=== PATIENT | female | born 1980 | race Caucasian/White ===

== ENCOUNTER 2017-07-01 10:01 | Emergency (ER) | payer OTHER ==
[2017-07-01] MEDS ORDERED: OXYMETAZOLINE NASAL SPRAY NAS STA (10:23)
[2017-07-01] MEDS ORDERED: BENZOCAINE/MENTHOL LOZENGE MM STA (10:23)
--- NOTE | 2017-07-01 10:37 | ED Physician Documentation ---
History of Present Illness - Stated complaint Stated Complaint: H/A,BODY ACHES,SORE THROAT,EAR PX - Chief complaint Chief Complaint: General - Additonal information Additional information: hx from pt healthy 36 y/o f works at [employer] and her son has influneza to ED with fever chills myalgias sore throat nasal congestion and cough no NVD Review of Systems Constitutional: reports: Fever, Chills, Myalgias Nose: reports: Congestion Throat: reports: Sore throat Respiratory: reports: Cough GI: denies: Vomiting, Diarrhea : denies: Now EGA Immunocompromised: denies: Immunocompromised PD PAST MEDICAL HISTORY - Past Medical History Respiratory: Other GI: GERD 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: Ovarian cysts : None Psych: None Musculoskeletal: None - Past Surgical History Past Surgical History: Yes General: Cholecystectomy /HOP WEIGHER: section - Present Medications Home Medications: Ambulatory Orders Medication Instructions Recorded Confirmed Benzonatate [Tessalon] 100 mg PO TID PRN #20 capsule 07/01/17 Omeprazole [PriLOSEC] 1 tab PO DAILY 07/01/17 07/01/17 Oseltamivir [Tamiflu] 75 mg PO BID #9 capsule 07/01/17 Oxymetazoline HCl [Afrin] 2 spray NS BID PRN #1 bottle 07/01/17 Pseudoephedrine [Sudafed] 30 mg PO Q6H PRN #20 tablet 07/01/17 - Allergies Allergies/Adverse Reactions: Allergies Allergy/AdvReac Type Severity Reaction Status Date / Time clarithromycin [From Biaxin] Allergy Hives Verified 07/01/17 10:12 - Social History Does the pt smoke?: No Smoking Status: Never smoker Does the pt drink ETOH?: Yes Does the pt have substance abuse?: No - Immunizations Immunizations are current?: Yes - POLST Patient has POLST: No PD ED PE NORMAL - Vitals Vital signs reviewed: Yes - General General: Alert and oriented X 3 - HEENT HEENT: No: Ears normal (dull and congested jackelyn s eryhthema or purulence) - Cardiac Cardiac: RRR - Respiratory Respiratory: No respiratory distress, Clear bilaterally - Abdomen Abdomen: Soft, Non tender - Derm Derm: Normal color - Neuro Neuro: Alert and oriented X 3 Results - Vitals Vitals: Vital Signs - 24 hr 07/01/17 07/01/17 10:09 12:13 Temperature 36.7 C 36.5 C Heart Rate 80 75 Respiratory 16 16 Rate Blood Pressure 131/87 H 133/83 H O2 Saturation 98 98 Oxygen O2 Source Room air - Labs Labs: Laboratory Tests 07/01/17 07/01/17 10:20 10:35 Influenza A (Rapid) Negative Influenza B (Rapid) Negative Influenza Types A,B Ag - Group A Strep Rapid Negative PD MEDICAL DECISION MAKING - ED course ED course: flu swabs neg pt feels like she has flu - had it before - he son has it - last time she did not get tamiflu in time and this round she would like tamiflu so will rx after we discussed side effects risks and benefits and she still wanted tamiflu Departure - Departure Disposition: 01 Home, Self Care Clinical Impression: Influenza Condition: Good Instructions: ED Flu, Medication: Tamiflu (Oseltamivir) Follow-Up: ANA MARÍA GUTHRIE [Primary Care Provider] - Prescriptions: Benzonatate [Tessalon] 100 mg PO TID PRN #20 capsule PRN Reason: to ease cough Oseltamivir [Tamiflu] 75 mg PO BID #9 capsule Oxymetazoline HCl [Afrin] 2 spray NS BID PRN #1 bottle PRN Reason: nasal sinus ear congestion Pseudoephedrine [Sudafed] 30 mg PO Q6H PRN #20 tablet PRN Reason: congestion Comments: Both the strep and the flu swabs were negative But your symptoms are very suggestive of the flu and you were exposed to a documented case of flu So after we discussed the possible side effects of tamiflu, you wished to proceed I have also prescribed symptomatic medications
[2017-07-01 12:13] VITALS: BP 133/83
[2017-07-01] MEDS ORDERED: OSELTAMIVIR 75 MG CAPSULE PO STA (12:41)
== END 2017-07-01 12:52 | disposition home or self-care (01) ==
LOC: ED 10:01
DX: J11.1 Influenza due to unidentified influenza virus with other respiratory manifestations (principal); K21.9 Gastro-esophageal reflux disease without esophagitis
CPT/HCPCS: 87070; 87275; 87276; 87430; 99283; A9270

== ENCOUNTER 2017-12-10 10:13 | Emergency (ER) | payer OTHER ==
[2017-12-10] MEDS ORDERED: DEXAMETHASONE 10 MG/ML VIAL PO STA (11:29)
--- NOTE | 2017-12-10 11:32 | ED Physician Documentation ---
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 She has had some issue with sciatica previously and this seems somewhat different to her. She does get swelling in her extremities when she is standing for an extended period time. Review of Systems Constitutional: denies: Fever Eyes: denies: Decreased vision Ears: denies: Ear pain Nose: denies: Congestion Throat: denies: Sore throat Cardiac: denies: Chest pain / pressure, Palpitations Respiratory: denies: Dyspnea, Cough GI: denies: Abdominal Pain, Nausea, Vomiting : denies: Dysuria, Frequency Skin: denies: Rash Musculoskeletal: reports: Back pain, Extremity pain. 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 : None Psych: None Musculoskeletal: None - Past Surgical History Past Surgical History: Yes General: Cholecystectomy /JEWEL BEARING FACER: section - Present Medications Home Medications: Ambulatory Orders Medication Instructions Recorded Confirmed Cyclobenzaprine [Flexeril] 10 mg PO TID PRN #20 tablet 12/10/17 HYDROcod/ACETAM 5/325 [[place] 5/325] 1 - 2 ea PO Q6H PRN #15 tablet 12/10/17 - Allergies Allergies/Adverse Reactions: Allergies Allergy/AdvReac Type Severity Reaction Status Date / Time clarithromycin [From Biaxin] Allergy Hives Verified 12/10/17 10:26 - Social History Does the pt smoke?: No Smoking Status: Never smoker Does the pt drink ETOH?: Yes Does the pt have substance abuse?: No - Immunizations Immunizations are current?: Yes - POLST Patient has POLST: No PD ED PE NORMAL - Vitals Vital signs reviewed: Yes (hypotensive ) - General General: Alert and oriented X 3, No acute distress, Well developed/nourished - HEENT HEENT: Atraumatic, PERRL, EOMI - Neck Neck: Supple, no meningeal sign, No bony TTP - Cardiac Cardiac: RRR, No murmur - Respiratory Respiratory: No respiratory distress, Clear bilaterally - Abdomen Abdomen: Soft, Non tender - Back Back: No CVA TTP, No spinal TTP, Other (There is tenderness to the paraspinous muslces of the lower lumbar spine. ) - Derm Derm: Normal color, Warm and dry, No rash - Extremities Extremities: No deformity, Other (trace edema bilaterally worse on the right and pain to palp over the posterior calf and thigh. ) - Neuro Neuro: Alert and oriented X 3, utility bill collector 2-12 intact, No motor deficit, No sensory deficit, Normal speech Eye Opening: Spontaneous Motor: Obeys Commands Verbal: Oriented GCS Score: 15 - Psych Psych: Normal mood, Normal affect Results - Vitals Vitals: Vital Signs - 24 hr 12/10/17 12/10/17 10:22 11:32 Temperature 36 C L Heart Rate 96 79 Respiratory 18 14 Rate Blood Pressure 99/56 L 136/79 H O2 Saturation 96 98 Oxygen O2 Source Room air - Rads (name of study) duplex veins right Radiology: Prelim report reviewed (Impression: No evidence for deep venous thrombosis.), EMP read indepedently, See rad report Procedures - IVC sono (time) 1115 Bedside IVC sono: IVC measures (cm) (1.71), Euvolemia PD MEDICAL DECISION MAKING - ED course Complexity details: reviewed old records, reviewed results, re-evaluated patient, considered differential, d/w patient, d/w family ED course: 37-year-old female with pain radiating down her right leg with swelling of her ankles does not have deep vein thrombosis. She does have dependent edema and she has been on her feet a lot. She has sciatica and she is treated here in the emergency department with dexamethasone 10 mg orally. Duplex exam of the veins is obtained demonstrating no evidence of DVT. - Sepsis Event Vital Signs: Vital Signs - 24 hr 12/10/17 12/10/17 10:22 11:32 Temperature 36 C L Heart Rate 96 79 Respiratory 18 14 Rate Blood Pressure 99/56 L 136/79 H O2 Saturation 96 98 Oxygen O2 Source Room air Departure - Departure Disposition: 01 Home, Self Care Clinical Impression: Sciatica Qualifiers: Laterality: right Qualified Code(s): M54.31 - Sciatica, right side Condition: Stable Instructions: ED Sciatica Follow-Up: ANA MARÍA GUTHRIE [Primary Care Provider] - Prescriptions: Cyclobenzaprine [Flexeril] 10 mg PO TID PRN #20 tablet PRN Reason: Spasms HYDROcod/ACETAM 5/325 [[place] 5/325] 1 - 2 ea PO Q6H PRN #15 tablet PRN Reason: Pain Forms: Activity restrictions
--- NOTE | 2017-12-10 13:50 | Ultrasound Report ---
Reason: swelling and pain up the leg Procedure Date: 12/10/2017 Accession Number: [id number] / [id number] Procedure: US - Duplex Ext Veins Right CPT Code: FULL RESULT: EXAM: RIGHT LOWER EXTREMITY VENOUS ULTRASOUND EXAM DATE: 12/10/2017 01:36 PM. CLINICAL HISTORY: Swelling and pain up the leg. COMPARISON: None. TECHNIQUE: Real-time sonographic vascular imaging was performed by the bus mechanic through the lower extremity utilizing both color-flow and Doppler spectral analysis. Multiple client relations representative static images were saved for review. FINDINGS: Common Femoral Vein (CFV): Normal. CFV-GSV Junction: Normal. Profunda Femoral Vein (PFV): Normal. Femoral Vein (FV) Prox: Normal. Femoral Vein (FV) Mid: Normal. Femoral Vein (FV) Dist: Normal. Popliteal Vein: Normal. Posterior Tibial Veins: Normal. Peroneal Veins: Normal. Other: None. IMPRESSION: No evidence for deep venous thrombosis. RADIA
[2017-12-10 14:23] VITALS: BP 120/74
== END 2017-12-10 14:23 | disposition home or self-care (01) ==
LOC: ED 10:13
DX: M54.31 Sciatica, right side (principal)
CPT/HCPCS: 99283

== ENCOUNTER 2018-06-03 02:37 | Emergency (ER) | payer OTHER ==
[2018-06-03] MEDS ORDERED: ACETAMINOPHEN 500 MG TABLET PO STA (03:17)
[2018-06-03] MEDS ORDERED: NAPROXEN 250 MG TABLET PO STA (03:17)
--- NOTE | 2018-06-03 03:20 | ED Physician Documentation ---
History of Present Illness - Stated complaint Stated Complaint: BODY ACHES - Chief complaint Chief Complaint: General - Additonal information Additional information: 37-year-old female presents the emergency department for evaluation of body aches, chills, feeling fevers, sore throat and cough for the past several days. The patient gets some improvement with Tylenol Motrin. No reports of wheezing, chest pain, abdominal pain, vomiting or diarrhea. Symptoms are described as moderate. No other associated symptoms Review of Systems Constitutional: reports: Fever, Chills, Myalgias, Fatigue Eyes: denies: Discharge Ears: denies: Ear pain Nose: reports: Congestion Throat: reports: Sore throat Cardiac: denies: Chest pain / pressure Respiratory: reports: Cough. 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 : None Psych: None Musculoskeletal: None - Past Surgical History Past Surgical History: Yes General: Cholecystectomy /RV REPAIR TECHNICIAN: section - Present Medications Home Medications: Ambulatory Orders Medication Instructions Recorded Confirmed Cyclobenzaprine [Flexeril] 10 mg PO TID PRN #20 tablet 12/10/17 HYDROcod/ACETAM 5/325 [[place] 5/325] 1 - 2 ea PO Q6H PRN #15 tablet 12/10/17 - Allergies Allergies/Adverse Reactions: Allergies Allergy/AdvReac Type Severity Reaction Status Date / Time clarithromycin [From Biaxin] Allergy Hives Verified 12/10/17 10:26 - Social History Does the pt smoke?: No Smoking Status: Never smoker Does the pt drink ETOH?: Yes Does the pt have substance abuse?: No - Immunizations Immunizations are current?: Yes - POLST Patient has POLST: No PD ED PE NORMAL - General General: Alert and oriented X 3, No acute distress - HEENT HEENT: Atraumatic, PERRL, EOMI, Ears normal, Moist mucous membranes, Pharynx benign - Neck Neck: Supple, no meningeal sign - Cardiac Cardiac: RRR, Strong equal pulses - Respiratory Respiratory: No respiratory distress, Clear bilaterally - Derm Derm: Normal color - Extremities Extremities: No deformity, Normal ROM s pain, No edema - Neuro Neuro: Alert and oriented X 3, Normal speech - Psych Psych: Normal affect Results - Vitals Vitals: Vital Signs - 24 hr 06/03/18 06/03/18 02:39 03:24 Temperature 36.8 C 36.9 C Heart Rate 96 90 Respiratory 18 14 Rate Blood Pressure 136/94 H 138/100 H O2 Saturation 96 97 Oxygen O2 Source Room air PD MEDICAL DECISION MAKING - ED course ED course: Well-appearing, nontoxic and well-hydrated patient whose symptoms appear to be other viral etiology. There is no clinical evidence to suggest a superimposed b acterial infection and presently the patient appears appropriate for discharge and ongoing outpatient management. I discussed warning signs and recommended returning to the emergency department for any worsening or any concerns. Departure - Departure Disposition: 01 Home, Self Care Clinical Impression: Influenza-like illness Condition: Good Instructions: ED Flu Follow-Up: ANA MARÍA GUTHRIE [Primary Care Provider] - Within 1 week Comments: Please return to the emergency department for worsening symptoms or any concerns Forms: Activity restrictions
[2018-06-03 03:25] VITALS: BP 138/100
== END 2018-06-03 03:30 | disposition home or self-care (01) ==
LOC: ED 02:37
DX: R05 Cough (principal); R53.83 Other fatigue; R50.9 Fever, unspecified; M79.10 Myalgia, unspecified site; J02.9 Acute pharyngitis, unspecified
CPT/HCPCS: 99282; 99283; A9270

== ENCOUNTER 2018-09-22 19:23 | Emergency (ER) | payer OTHER ==
[2018-09-22] MEDS ORDERED: HYDROcod/ACETAM 5/325 MG TABLET PO STA (19:52)
[2018-09-22] MEDS ORDERED: IBUPROFEN 800 MG TABLET PO STA (19:52)
--- NOTE | 2018-09-22 19:54 | ED Physician Documentation ---
PD HPI LOWER EXT INJURY - Stated complaint Stated Complaint: LT LEG PX - Chief complaint Chief Complaint: Trauma Ext - History obtained from History obtained from: Patient - History of Present Illness PD HPI LOW EXT INJURY LOCATION: Other (She had a trip and fall at work, for she caught her right great toe on something and then went forward onto her knee and has left knee and left hip pain. Also increasing chronic back pain. 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 : None Psych: None Musculoskeletal: None - Past Surgical History Past Surgical History: Yes General: Cholecystectomy /TRUCK REPAIR SUPERVISOR: section - Present Medications Home Medications: Ambulatory Orders Medication Instructions Recorded Confirmed Cyclobenzaprine [Flexeril] 10 mg PO TID PRN #20 tablet 12/10/17 RX: HYDROcod/ACETAM 5/325 [[place] 1 - 2 ea PO Q6H PRN #15 tablet 12/10/17 5/325] Hydrocodone/Acetaminophen 1 - 2 each PO Q6H PRN #7 tablet 09/22/18 [Hydrocodon-Acetaminophen 5-325] Ibuprofen [Motrin] 800 mg PO Q8H PRN #20 tablet 09/22/18 - Allergies Allergies/Adverse Reactions: Allergies Allergy/AdvReac Type Severity Reaction Status Date / Time clarithromycin [From Biaxin] Allergy Hives Verified 12/10/17 10:26 - Social History Does the pt smoke?: No Smoking Status: Never smoker Does the pt drink ETOH?: Yes Does the pt have substance abuse?: No - Immunizations Immunizations are current?: No Immunizations: TDAP >10years/unknown - POLST Patient has POLST: No PD ED PE NORMAL - Vitals Vital signs reviewed: Yes - General General: Alert and oriented X 3, No acute distress - Neck Neck: Supple, no meningeal sign, No bony TTP - Back Back: No spinal TTP - Extremities Extremities: Other (Mild TTP R prox great toe, TTP Lprox fbiula and anterior knee, no deformity and no ligamentous laxity. No TTP L hip but pain with external rotation.) - Neuro Neuro: Alert and oriented X 3, Normal speech Results - Vitals Vitals: Vital Signs - 24 hr 09/22/18 09/22/18 19:28 20:48 Temperature 36.5 C 36.7 C Heart Rate 90 92 Respiratory 16 18 Rate Blood Pressure 139/82 H 125/72 O2 Saturation 99 98 Oxygen O2 Source Room air - Rads (name of study) XRs L foot, L hip, R 1st toe Radiology: EMP read contemporaneously (normal) Departure - Departure Disposition: 01 Home, Self Care Clinical Impression: Sprain of toe, great, right, Contusion of knee, left, Strain of left hip Condition: Good Record reviewed to determine appropriate education?: Yes Health Concerns: Fall with injuries of the right big toe and left leg Plan of Treatment: Xrays negative. Relative rest with pain medications Care Goals: improvement in pain and function Assessment: as above Instructions: ED Sprain Knee Prescriptions: Hydrocodone/Acetaminophen [Hydrocodon-Acetaminophen 5-325] 1 - 2 each PO Q6H PRN #7 tablet PRN Reason: pain Ibuprofen [Motrin] 800 mg PO Q8H PRN #20 tablet PRN Reason: PAIN &/OR FEVER Comments: Recheck with your doctor in a week if not better, return for new or worsening symptoms. Discharge Date/Time: 09/22/18 20:49
[2018-09-22] MEDS ORDERED: TETANUS/DIPHTHERIA/PERTUSSIS 0.5 ML SYRINGE IM ONE (19:55)
[2018-09-22 20:49] VITALS: BP 125/72
--- NOTE | 2018-09-22 21:16 | XRAY Report ---
Reason: fall, R big toe, L Knee, L hip pain Procedure Date: 09/22/2018 Accession Number: [id number] / [id number] Procedure: XR - Hip w/Pelvis 2-3V LT CPT Code: FULL RESULT: EXAM: LEFT HIP RADIOGRAPHY EXAM DATE: 09/22/2018 08:30 PM. CLINICAL HISTORY: Fall, R big toe, L Knee, L hip pain. COMPARISON: None. TECHNIQUE: 2 views. FINDINGS: Bones: Normal. No fractures or bone lesion. Joints: Normal. No dislocation. The hip joint space is preserved. Soft Tissues: Normal. No soft tissue swelling. IMPRESSION: Negative hip radiography. RADIA
--- NOTE | 2018-09-22 21:23 | XRAY Report ---
Reason: fall, R big toe, L Knee, L hip pain Procedure Date: 09/22/2018 Accession Number: [id number] / [id number] Procedure: XR - Knee 4 View LT CPT Code: FULL RESULT: EXAM: LEFT KNEE RADIOGRAPHY EXAM DATE: 09/22/2018 08:32 PM. CLINICAL HISTORY: Fall, R big toe, L Knee, L hip pain. COMPARISON: None. TECHNIQUE: 4 views. FINDINGS: Bones: Normal. No fractures or bone lesions. Joints: Normal. No effusion. No subluxations. Soft Tissues: Normal. No soft tissue swelling. IMPRESSION: Negative knee radiography. RADIA
--- NOTE | 2018-09-22 21:25 | XRAY Report ---
Reason: fall, R big toe, L Knee, L hip pain Procedure Date: 09/22/2018 Accession Number: [id number] / [id number] Procedure: XR - Toe(s) RT CPT Code: FULL RESULT: EXAM: RIGHT TOE RADIOGRAPHY EXAM DATE: 09/22/2018 08:33 PM. CLINICAL HISTORY: Fall, R big toe, L Knee, L hip pain. COMPARISON: None. TECHNIQUE: 3 views. FINDINGS: Bones: No fracture or focal bony lesion. Joints: No evidence of dislocation. Soft Tissues: No unexpected soft tissue findings. IMPRESSION: No evidence of fracture or dislocation. RADIA
== END 2018-09-22 20:49 | disposition home or self-care (01) ==
LOC: ED 19:23
DX: S76.012A Strain of muscle, fascia and tendon of left hip, initial encounter (principal); S93.501A Unspecified sprain of right great toe, initial encounter; S80.02XA Contusion of left knee, initial encounter; W01.0XXA Fall on same level from slipping, tripping and stumbling without subsequent striking against object, initial encounter; Y93.01 Activity, walking, marching and hiking; Y99.0 Civilian activity done for income or pay; Z23 Encounter for immunization
CPT/HCPCS: 73502; 73564; 73660; 90471; 90715; 99283; A9270

== ENCOUNTER 2019-01-06 07:31 | Emergency (ER) | payer OTHER ==
[2019-01-06 07:48] VITALS: BP 139/85
--- NOTE | 2019-01-06 08:12 | ED Physician Documentation ---
PD HPI SKIN - Stated complaint Stated Complaint: POST OP AB RASH - Chief complaint Chief Complaint: Wound - History obtained from History obtained from: Patient, Family - History of Present Illness Timing - duration: Days (3) Timing - details: Gradual onset Severity Comments: moderate irritation under her pannus and breasts Location: Other (breasts and pannus folds) Quality / character: Itchy, Other (red, tender) Improved by: Other (nothing) Worsened by (comment): COMMENT (nothing) Associated symptoms: No: Fever, Dyspnea, Abd pain, N/V/D, Urinary sx Contributing factors: Other (patient is 5 days s/p Hysterectomy performed laparoscopically at [facility]), Unknown Similar symptoms before: Has not had sx before Recently seen: Not recently seen - Treatment prior to arrival Treatment prior to arrival: aquaphor cream applied to pannus and breast folds - Additional information Additional information: States this started a few days after her surgery. It does not involve her surgical incisions or wounds. Review of Systems Ten Systems: 10 systems reviewed and negative Constitutional: denies: Fever Cardiac: reports: Reviewed and negative Respiratory: reports: Reviewed and negative GI: reports: Abdominal Pain (consistent with postop pain but not severe, controlled with analgesics at home). denies: Nausea, Vomiting Skin: reports: Rash Musculoskeletal: reports: Reviewed and negative Neurologic: reports: Reviewed and negative Immunocompromised: reports: Reviewed and negative. 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 : None Psych: None Musculoskeletal: None - Past Surgical History Past Surgical History: Yes General: Cholecystectomy /CONE MARKER: section, Hysterectomy - Present Medications Home Medications: Ambulatory Orders Medication Instructions Recorded Confirmed Cyclobenzaprine [Flexeril] 10 mg PO TID PRN #20 tablet 12/10/17 HYDROcod/ACETAM 5/325 [[place] 5/325] 1 - 2 ea PO Q6H PRN #15 tablet 12/10/17 Hydrocodone/Acetaminophen 1 - 2 each PO Q6H PRN #7 tablet 09/22/18 [Hydrocodon-Acetaminophen 5-325] Ibuprofen [Motrin] 800 mg PO Q8H PRN #20 tablet 09/22/18 Cephalexin [Keflex] 500 mg PO Q6H #28 capsule 01/06/19 Clotrimazole 1 applic TP BID #60 g 10/12/19 - Allergies Allergies/Adverse Reactions: Allergies Allergy/AdvReac Type Severity Reaction Status Date / Time clarithromycin [From Biaxin] Allergy Hives Verified 01/06/19 07:48 - Social History Does the pt smoke?: No Smoking Status: Never smoker Does the pt drink ETOH?: Yes Does the pt have substance abuse?: No - Immunizations Immunizations are current?: No Immunizations: TDAP >10years/unknown - POLST Patient has POLST: No PD ED PE NORMAL - Vitals Vital signs reviewed: Yes - General General: Alert and oriented X 3, No acute distress, Well developed/nourished - HEENT HEENT: Atraumatic, Pharynx benign - Neck Neck: Supple, no meningeal sign - Cardiac Cardiac: RRR - Respiratory Respiratory: No respiratory distress - Abdomen Abdomen: Soft, Non tender, Non distended, Other (obese abdomen ) - Female Female : Deferred - Rectal Rectal: Deferred - Extremities Extremities: No edema - Neuro Neuro: Alert and oriented X 3 Eye Opening: Spontaneous Motor: Obeys Commands Verbal: Oriented GCS Score: 15 - Psych Psych: Normal mood, Normal affect PD ED PE EXPANDED - Abdomen Abdomen: Surgical scars (laparoscopy scars in the abdomen are well healing and normal, clean dry and intact). No: Rebound, Guarding - Derm Derm: Rash (erythematous rash under her pannus and breasts bilaterally with some satellite lesions, skin is warm to touch, moist due to aquaphor pt has applied prior to arrival ) Results - Vitals Vitals: Vital Signs - 24 hr 01/06/19 07:42 Temperature 36.5 C Heart Rate 85 Respiratory 16 Rate Blood Pressure 139/85 H O2 Saturation 100 Oxygen O2 Source Room air PD MEDICAL DECISION MAKING - ED course Complexity details: considered differential, d/w patient, d/w family ED course: ddx- cellulitis, erysipelas, candidal intertrigo 38 y/o F well appearing with rash in her pannus fold and breast folds c/w candidal intertrigo. Will initiate home care regimen and clotrimazole. It is warm to the touch and mildly tender thus I did also prescribe the pt keflex in case of worsening but discussed holding off on using it unless no improvement or worsening despite the clotrimazole. Discussed return precautions in case of severe pain, spreading rash or fever. Departure - Departure Disposition: 01 Home, Self Care Clinical Impression: Candidal intertrigo Condition: Stable Record reviewed to determine appropriate education?: Yes Instructions: ED Candidiasis Cutaneous Follow-Up: ANA MARÍA GUTHRIE [Primary Care Provider] - Within 1 week (to recheck your rash if it persists) Prescriptions: Cephalexin [Keflex] 500 mg PO Q6H #28 capsule Clotrimazole 1 applic TP BID #60 g Comments: You likely have a candidal yeast infection. First try the prescribed clotrimazole cream but if worsening fill the prescription for keflex. If any fever or severe pain return to the ED for reevaluation. Otherwise follow up with your regular doctor to recheck the area in a week. The clotrimazole can take up to 4 weeks to clear this rash. Practices aimed at minimizing moisture and friction in the involved area and reducing susceptibility to intertrigo are the mainstays of treatment. Typical beneficial practices include: Daily cleansing of intertriginous skin with a mild cleanser followed by drying of affected area with a hair rooting machine operator on a cool setting Aeration of affected area when feasible Daily application of drying powders Use of absorbent material or clothing, such as cotton or [place] wool, to separate skin in folds Discharge Date/Time: 01/06/19 08:24
== END 2019-01-06 08:24 | disposition home or self-care (01) ==
LOC: ED 07:31
DX: B37.2 Candidiasis of skin and nail (principal); Z90.49 Acquired absence of other specified parts of digestive tract; Z90.710 Acquired absence of both cervix and uterus; Z98.890 Other specified postprocedural states
CPT/HCPCS: 99282; 99284

== ENCOUNTER 2019-03-13 12:40 | Emergency (ER) | payer OTHER ==
[2019-03-13 12:54] VITALS: BP 125/110
--- NOTE | 2019-03-13 13:36 | ED Physician Documentation ---
History of Present Illness - Stated complaint Stated Complaint: COUGH - Chief complaint Chief Complaint: Heent - History obtained from History obtained from: Patient - History of Present Illness Timing: How many days ago (a few days) Pain level max: 0 Pain level now: 0 Improved by: rest Worsened by: deep breathing - Additonal information Additional information: Patient with a mild dry cough for the past few days. Her son recently tested positive for pertussis. She was sent here by her employer to be tested for pertussis as well. She has antibiotics already called in for her by the health department to her pharmacy. Her employer told her that despite antibiotic treatment, she still need to be tested. 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: Ovarian cysts : None Psych: None Musculoskeletal: None - Past Surgical History Past Surgical History: Yes General: Cholecystectomy /MONOTYPE KEYBOARD OPERATOR: section, Hysterectomy - Present Medications Home Medications: Ambulatory Orders Medication Instructions Recorded Confirmed Cyclobenzaprine [Flexeril] 10 mg PO TID PRN #20 tablet 12/10/17 HYDROcod/ACETAM 5/325 [[place] 5/325] 1 - 2 ea PO Q6H PRN #15 tablet 12/10/17 Hydrocodone/Acetaminophen 1 - 2 each PO Q6H PRN #7 tablet 09/22/18 [Hydrocodon-Acetaminophen 5-325] Ibuprofen [Motrin] 800 mg PO Q8H PRN #20 tablet 09/22/18 Cephalexin [Keflex] 500 mg PO Q6H #28 capsule 01/06/19 Clotrimazole 1 applic TP BID #60 g 01/06/19 Sulfamethox/Trimeth 800/160 1 each PO BID #28 tablet 03/13/19 [Bactrim Ds 800/160] - Allergies Allergies/Adverse Reactions: Allergies Allergy/AdvReac Type Severity Reaction Status Date / Time chlorhexidine Allergy Hives Verified 03/13/19 12:55 [From Hibiclens] clarithromycin [From Biaxin] Allergy Hives Verified 01/06/19 07:48 - Social History Does the pt smoke?: No Smoking Status: Never smoker Does the pt drink ETOH?: Yes Does the pt have substance abuse?: No - Immunizations Immunizations are current?: No Immunizations: TDAP >10years/unknown - POLST Patient has POLST: No PD ED PE NORMAL - Vitals Vital signs reviewed: Yes - General General: Alert and oriented X 3, No acute distress, Well developed/nourished - HEENT HEENT: Ears normal, Moist mucous membranes, Pharynx benign - Neck Neck: Supple, no meningeal sign - Cardiac Cardiac: RRR, Strong equal pulses - Respiratory Respiratory: No respiratory distress, Clear bilaterally - Derm Derm: Warm and dry, No rash - Neuro Neuro: Alert and oriented X 3 - Psych Psych: Normal mood, Normal affect Results - Vitals Vitals: Vital Signs - 24 hr 03/13/19 12:52 Temperature 37 C Heart Rate 89 Respiratory 20 Rate Blood Pressure 125/110 H O2 Saturation 98 Oxygen O2 Source Room air PD MEDICAL DECISION MAKING - ED course Complexity details: considered differential, d/w patient ED course: Swab performed for pertussis. She has an antibiotic called in for her by the health department already. She is allergic to clarithromycin, likely the azithromycin was called in for her, therefore I will write a prescription for Bactrim in case azithromycin was the prescription called in for her. Patient counseled regarding signs and symptoms for which I believe and urgent re- evaluation would be necessary. Patient with good understanding of and agreement to plan and is comfortable going home at this time This document was made in part using voice recognition software. While efforts are made to proofread this document, sound alike and grammatical errors may occur. Patient is well-appearing, nontoxic. Afebrile. Departure - Departure Disposition: 01 Home, Self Care Clinical Impression: Pertussis exposure Condition: Good Instructions: ED Pertussis Follow-Up: ANA MARÍA GUTHRIE [Primary Care Provider] - (in 2 weeks if still having symptoms) Prescriptions: Sulfamethox/Trimeth 800/160 [Bactrim Ds 800/160] 1 each PO BID #28 tablet Comments: Return if you worsen. Take all antibiotics until gone. Your testing for pertussis will be back in approximately 5 days. You are to stay out of work until you have a negative test or have completed antibiotic therapy. Forms: Activity restrictions
[2019-03-17 06:10] LABS: B. PARAPERTUSSIS DNA NOT DETECTED; SOURCE NOSE
== END 2019-03-13 13:54 | disposition home or self-care (01) ==
LOC: ED 12:40
DX: Z20.818 Contact with and (suspected) exposure to other bacterial communicable diseases (principal)
CPT/HCPCS: 87798; 99283

== ENCOUNTER 2019-10-11 16:06 | Emergency (ER) | payer OTHER ==
[2019-10-11] MEDS ORDERED: DEXAMETHASONE 10 MG/ML VIAL IM STA (16:38)
[2019-10-11] MEDS ORDERED: diphenhydrAMINE INJ 50 MG/ML VIAL IM STA (16:39)
[2019-10-11 18:09] VITALS: BP 129/72
--- NOTE | 2019-10-11 18:11 | ED Physician Documentation ---
History of Present Illness - Stated complaint Stated Complaint: COUGH, SOA - Chief complaint Chief Complaint: General - History obtained from History obtained from: Patient - Additonal information Additional information: Patient comes emergency department complaining of several episodes of an itchy, tight feeling throat that seems to come on randomly. She states the episodes have been over the last couple of weeks and that she is currently having an episode which prompted her to come in today. Patient states she has not tried any Benadryl and has not been placed any on any steroids. She has a history of allergy to Biaxin and has seasonal allergies, which she states have been acting up. She denies any history of asthma. She has not noticed a worsening of her symptoms with wearing a mask. She states she has not been using any new detergents or soaps or other cosmetics. No food allergies that she knows of. Patient states that she feels like her symptoms are improving slightly. Patient states that she has generally let the episodes pass on their own. She does take Zantac at baseline. Patient has never had an anaphylactic reaction, and does not use an EpiPen. No other rash anywhere else. No itching anywhere no other complaints at this time. Patient does not feel that her tongue is swollen. Review of Systems Ten Systems: 10 systems reviewed and negative Constitutional: reports: Reviewed and negative Eyes: reports: Reviewed and negative Ears: reports: Reviewed and negative Nose: reports: Reviewed and negative Throat: reports: Other (Swelling, itching). denies: Sore throat Cardiac: reports: Reviewed and negative Respiratory: reports: Reviewed and negative GI: reports: Reviewed and negative : reports: Reviewed and negative Skin: reports: Reviewed and negative Musculoskeletal: reports: Reviewed and negative Neurologic: reports: Reviewed and negative Psychiatric: reports: Reviewed and negative Endocrine: reports: Reviewed and negative Immunocompromised: reports: Reviewed and negative PD PAST MEDICAL HISTORY - Past Medical History Past Medical History: Yes Cardiovascular: None Respiratory: None, Other Neuro: None Endocrine/Autoimmune: None GI: GERD 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: Ovarian cysts : None HEENT: None Psych: None Musculoskeletal: None Derm: None - Past Surgical History Past Surgical History: Yes General: Cholecystectomy /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: section, Hysterectomy - Present Medications Home Medications: Ambulatory Orders Medication Instructions Recorded Confirmed Cyclobenzaprine [Flexeril] 10 mg PO TID PRN #20 tablet 09/15/18 HYDROcod/ACETAM 5/325 [[place] 5/325] 1 - 2 ea PO Q6H PRN #15 tablet 12/10/17 Hydrocodone/Acetaminophen 1 - 2 each PO Q6H PRN #7 tablet 09/22/18 [Hydrocodon-Acetaminophen 5-325] Ibuprofen [Motrin] 800 mg PO Q8H PRN #20 tablet 09/22/18 Cephalexin [Keflex] 500 mg PO Q6H #28 capsule 01/06/19 Clotrimazole 1 applic TP BID #60 g 01/06/19 Sulfamethox/Trimeth 800/160 1 each PO BID #28 tablet 03/13/19 [Bactrim Ds 800/160] diphenhydrAMINE [Benadryl] 25 mg PO Q4-6H PRN #30 capsule 10/11/19 predniSONE [Prednisone] 60 mg PO DAILY #10 tablet 10/11/19 - Allergies Allergies/Adverse Reactions: Allergies Allergy/AdvReac Type Severity Reaction Status Date / Time chlorhexidine Allergy Hives Verified 03/13/19 12:55 [From Hibiclens] clarithromycin [From Biaxin] Allergy Hives Verified 01/06/19 07:48 - Social History Does the pt smoke?: No Smoking Status: Never smoker Does the pt drink ETOH?: Yes Does the pt have substance abuse?: No - Immunizations Immunizations are current?: No Immunizations: TDAP >10years/unknown - POLST Patient has POLST: No PD ED PE NORMAL - Vitals Vital signs reviewed: Yes - General General: Alert and oriented X 3, No acute distress - HEENT HEENT: Atraumatic, PERRL, EOMI, Moist mucous membranes, Other (No oropharyngeal swelling.) - Neck Neck: Supple, no meningeal sign, Thyroid normal - Cardiac Cardiac: RRR, No murmur - Respiratory Respiratory: No respiratory distress, Clear bilaterally, Other (Patient has good air movement, but is noted to have a repeated dry cough.) - Abdomen Abdomen: Soft, Non tender, Non distended - Derm Derm: Normal color, Warm and dry, Other (Patient has urticarial type rash in her submental area and superior neck.) - Extremities Extremities: No deformity - Neuro Neuro: Alert and oriented X 3, rubber calender helper 2-12 intact, No motor deficit, No sensory deficit, Normal speech - Psych Psych: Normal mood, Normal affect Results - Vitals Vitals: Oxygen O2 Source Room air - Rads (name of study) soft tissue neck xR Radiology: Final report received, EMP read indepedently, See rad report (normal) PD MEDICAL DECISION MAKING - ED course Complexity details: reviewed results, re-evaluated patient, considered differential, d/w patient ED course: Patient was sent for soft tissue neck x-ray and was Benadryl and Decadron in the emergency department, after which she reported feeling better. Her soft tissue neck x-ray was unremarkable. I did not find evidence of active anaphylaxis at this time, and as such, I did not feel the patient needed to be treated with e pinephrine. The patient has an appointment with her doctor tomorrow to discuss the allergic type symptoms and episodes, and is hoping to ultimately follow-up with an sky cap. I will prescribe prednisone and Benadryl for the patient. We have discussed the usual indications for return. Departure - Departure Disposition: 01 Home, Self Care Clinical Impression: Allergic reaction Qualifiers: Encounter type: initial encounter Qualified Code(s): T78.40XA - Allergy, unspecified, initial encounter Condition: Stable Instructions: ED Allergic Reaction General Other Prescriptions: diphenhydrAMINE [Benadryl] 25 mg PO Q4-6H PRN #30 capsule PRN Reason: Itching predniSONE [Prednisone] 60 mg PO DAILY #10 tablet Comments: Your soft tissue neck x-ray looks good. There is no evidence of soft tissue swelling anywhere throughout your throat or respiratory tract. It is not clear what you is causing your symptoms, but the symptoms seem most consistent with an allergic type reaction. Please speak with your doctor about potentially seeing an sky cap, should symptoms continue. Please take the steroids and Benadryl for the next few days, as needed. If you begin to have further sense of swelling in your throat, or any difficulty breathing, please return to the emergency department immediately. Discharge Date/Time: 10/11/19 18:35
--- NOTE | 2019-10-11 18:52 | XRAY Report ---
PROCEDURE: Neck Soft Tissue INDICATIONS: Throat swelling sensation TECHNIQUE: 2 views of the neck were acquired. COMPARISON: None FINDINGS: Airway: The airway appears patent. Soft tissues: Prevertebral soft tissues are normal in thickness. The epiglottis and aryepiglottic f olds appear normal. No soft tissue gas. Bones: No suspicious bony lesions. Visualized cervical spine is normally aligned. IMPRESSION: Normal study. Reviewed by: Jose G Aguila MD on 10/11/2019 6:51 PM PDT Approved by: Jose G Aguila MD on 10/11/2019 6:51 PM PDT Station ID: [id number]
== END 2019-10-11 18:35 | disposition home or self-care (01) ==
LOC: ED 16:06
DX: T78.40XA Allergy, unspecified, initial encounter (principal); X58.XXXA Exposure to other specified factors, initial encounter; L50.9 Urticaria, unspecified
CPT/HCPCS: 70360; 93005; 96372; 99283; 99284; J1200

== ENCOUNTER 2020-04-05 10:11 | Emergency (ER) | payer OTHER ==
[2020-04-05 10:29] VITALS: BP 129/82
--- NOTE | 2020-04-05 11:23 | ED Physician Documentation ---
History of Present Illness - Stated complaint Stated Complaint: DOG SCRATCH ON FACE - Chief complaint Chief Complaint: Laceration - History obtained from History obtained from: Patient - History of Present Illness Timing: Today - Additonal information Additional information: 39-year-old female was playing with a 7-week-old puppy when it scratched her in the nose. She is coming to the emergency department now with a scratch on her nose that she has been able to control bleeding but she is wearing a mask and continuously putting this mass right over the top of this and she is wondering if there is something more she can do for this.She is up-to-date on her tetanus Review of Systems Constitutional: denies: Fever Eyes: denies: Decreased vision Ears: denies: Ear pain Nose: denies: Congestion Throat: denies: Sore throat Respiratory: denies: Cough GI: denies: Vomiting PD PAST MEDICAL HISTORY - Past Medical History Cardiovascular: None Respiratory: None, Other Neuro: None Endocrine/Autoimmune: None GI: GERD 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: Ovarian cysts : None HEENT: None Psych: None Musculoskeletal: None Derm: None - Past Surgical History Past Surgical History: Yes General: Cholecystectomy /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: section, Hysterectomy - Present Medications Home Medications: Ambulatory Orders Medication Instructions Recorded Confirmed Cyclobenzaprine [Flexeril] 10 mg PO TID PRN #20 tablet 12/10/17 HYDROcod/ACETAM 5/325 [[place] 5/325] 1 - 2 ea PO Q6H PRN #15 tablet 12/10/17 Hydrocodone/Acetaminophen 1 - 2 each PO Q6H PRN #7 tablet 09/22/18 [Hydrocodon-Acetaminophen 5-325] Ibuprofen [Motrin] 800 mg PO Q8H PRN #20 tablet 09/22/18 Cephalexin [Keflex] 500 mg PO Q6H #28 capsule 01/06/19 Clotrimazole 1 applic TP BID #60 g 01/06/19 Sulfamethox/Trimeth 800/160 1 each PO BID #28 tablet 03/13/19 [Bactrim Ds 800/160] diphenhydrAMINE [Benadryl] 25 mg PO Q4-6H PRN #30 capsule 10/11/19 predniSONE [Prednisone] 60 mg PO DAILY #10 tablet 10/11/19 - Allergies Allergies/Adverse Reactions: Allergies Allergy/AdvReac Type Severity Reaction Status Date / Time chlorhexidine Allergy Hives Verified 04/05/20 10:24 [From Hibiclens] clarithromycin [From Biaxin] Allergy Hives Verified 04/05/20 10:24 - Social History Does the pt smoke?: No Smoking Status: Never smoker Does the pt drink ETOH?: Yes Does the pt have substance abuse?: No - Immunizations Immunizations are current?: No Immunizations: TDAP >10years/unknown - POLST Patient has POLST: No PD ED PE NORMAL - Vitals Vital signs reviewed: Yes (hypertensive ) - General General: Alert and oriented X 3, No acute distress, Well developed/nourished - HEENT HEENT: PERRL, EOMI, Other (There is a superficial 2cm laceration to the right nasal ala. ) - Neck Neck: Supple, no meningeal sign, No bony TTP - Respiratory Respiratory: No respiratory distress - Derm Derm: Normal color, Warm and dry, No rash - Extremities Extremities: No deformity, No edema - Neuro Neuro: Alert and oriented X 3, flat grinder operator 2-12 intact, No motor deficit, No sensory deficit, Normal speech Eye Opening: Spontaneous Motor: Obeys Commands Verbal: Oriented GCS Score: 15 - Psych Psych: Normal mood, Normal affect Results - Vitals Vitals: Vital Signs - 24 hr 04/05/20 10:22 Temperature 36.7 C Heart Rate 80 Respiratory 18 Rate Blood Pressure 129/82 H O2 Saturation 99 Oxygen O2 Source Room air Procedures - Laceration (location) nose Length in cm: 2 Wound type: Linear, Superficial Neurovascular status: Sensory intact, Motor intact, Vascular intact Wound Preparation: Hibiclens, Wound explored, To the base Skin layer closure: Dermabond Other: Patient tolerated well, No complications, Neurovascular intact, Tetanus UTD PD MEDICAL DECISION MAKING - ED course Complexity details: considered differential, d/w patient ED course: superficial laceration is covered with dermabond. Departure - Departure Disposition: 01 Home, Self Care Clinical Impression: Superficial laceration of face Condition: Stable Instructions: ED Laceration Facial Skin Glue Follow-Up: SABINO HO DO [Primary Care Provider] - Discharge Date/Time: 04/05/20 11:33
--- OUTSIDE RECORDS SUMMARY | 2020-04-09 01:51 | EXTERNAL MEDICAL SUMMARY RPT | Continuity of Care Document ---
:1980 Demographics Phone Unavailable Preferred Language Unknown Marital Status Unknown Pentecostalism Affiliation Unknown Race Unknown Ethnic Group Unknown Author Organization [facility] Address [address] [phone] Phone Care Team Providers Name Role Phone VIC Unavailable Unavailable Allergies date description facility BRAZIL NUT [facility] CITALOPRAM [facility] NO KNOWN ENVIRONMENTAL ALLERGIES [facility] Social History date description facility [phone]
== END 2020-04-05 11:33 | disposition home or self-care (01) ==
LOC: ED 10:11
DX: S01.21XA Laceration without foreign body of nose, initial encounter (principal); W54.8XXA Other contact with dog, initial encounter; Y93.89 Activity, other specified
CPT/HCPCS: 12011; 99281; 99282

== ENCOUNTER 2021-01-25 11:21 | Emergency (ER) | payer OTHER ==
[2021-01-25 11:34] VITALS: BP 140/105
--- NOTE | 2021-01-25 11:50 | ED Physician Documentation ---
History of Present Illness - Stated complaint Stated Complaint: MOUTH PX - Chief complaint Chief Complaint: Trauma Hd/Nk - Additonal information Additional information: 40-year-old female presents emergency department for evaluation of 3 days left- sided mouth pain. She reports that both her upper and lower jaw are tender. She does have some generalized cold sensitivity. She has had no fevers. No trismus. She does regularly see a dentist and receives dental cleanings. She had something similar about a year and a half ago and was referred to a dental specialist. She is unclear to this provider what the cause or diagnosis was. S he has been advised to wear a ice guard tester but does not. 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: Ovarian cysts : None HEENT: None Psych: None Musculoskeletal: None Derm: None - Past Surgical History Past Surgical History: Yes General: Cholecystectomy /OPHTHALMIC MEDICAL ASSISTANT: section, Hysterectomy - Present Medications Home Medications: Ambulatory Orders Medication Instructions Recorded Confirmed Cyclobenzaprine [Flexeril] 10 mg PO TID PRN #20 tablet 12/10/17 HYDROcod/ACETAM 5/325 [[place] 5/325] 1 - 2 ea PO Q6H PRN #15 tablet 12/10/17 Hydrocodone/Acetaminophen 1 - 2 each PO Q6H PRN #7 tablet 09/22/18 [Hydrocodon-Acetaminophen 5-325] Ibuprofen [Motrin] 800 mg PO Q8H PRN #20 tablet 09/22/18 Clotrimazole 1 applic TP BID #60 g 01/06/19 cephALEXin [Keflex] 500 mg PO Q6H #28 capsule 01/06/19 Sulfamethox/Trimeth 800/160 1 each PO BID #28 tablet 03/13/19 [Bactrim Ds 800/160] diphenhydrAMINE [Benadryl] 25 mg PO Q4-6H PRN #30 capsule 10/11/19 predniSONE [Prednisone] 60 mg PO DAILY #10 tablet 10/11/19 HYDROcod/ACETAM 5/325 [Renovo 5/325] 1 tablet PO BID PRN #10 tablet 01/25/21 - Allergies Allergies/Adverse Reactions: Allergies Allergy/AdvReac Type Severity Reaction Status Date / Time chlorhexidine Allergy Hives Verified 01/25/21 11:34 [From Hibiclens] clarithromycin [From Biaxin] Allergy Hives Verified 01/25/21 11:34 - Social History Does the pt smoke?: No Smoking Status: Never smoker Does the pt drink ETOH?: Yes Does the pt have substance abuse?: No - Immunizations Immunizations are current?: No Immunizations: TDAP >10years/unknown - POLST Patient has POLST: No PD ED PE EXPANDED - General General: Alert, No acute distress - HEENT HEENT: PERRL, EOMI, Ears normal, Pharynx normal. No: Right frontal sinus TTP, Left frontal sinus TTP, Right maxillary sinus TTP, Left maxillary sinus TTP, Pharyngeal erythema, Swollen tonsils, Dentition normal (Teeth generally appear to be in good repair however she has obvious grinding kirkpatrick on posterior molars bilaterally), Dental trauma, Dental TTP, Dental abscess, Dry socket, Oral lesions / sores Results - Vitals Vitals: Vital Signs - 24 hr 01/25/21 11:24 Temperature 36.6 C Heart Rate 79 Respiratory 18 Rate Blood Pressure 140/105 H O2 Saturation 97 Oxygen O2 Source Room air PD MEDICAL DECISION MAKING - ED course Complexity details: d/w patient ED course: 40-year-old female presents emergency department for evaluation of bilateral upper and lower left-sided mouth and jaw pain. There is no trismus or fevers. Her teeth are in generally good repair though she does have obvious grinding signs. She has been advised in the past to wear a nightguard but does not. I suspect that what she has is grinding injury and/or TMJ syndrome. Pain has not been relieved with sqde-rpr-wyiqaei ibuprofen or Tylenol. She will prescribed a limited number of Renovo. She is advised very close follow-up with her dentist this week. Emergent return precautions were discussed for concerns of infection facial swelling and trismus. Departure - Departure Disposition: 01 Home, Self Care Clinical Impression: Acute pain of mouth Condition: Stable Record reviewed to determine appropriate education?: Yes Instructions: ED TMJ Syndrome Prescriptions: HYDROcod/ACETAM 5/325 [Renovo 5/325] 1 tablet PO BID PRN #10 tablet PRN Reason: Pain Comments: Robyn tavera are seen today in the ER for mouth pain.. I do not see an obvious dental infection or inflammation. However it is fairly obvious that you do grind your teeth at night. I suspect that you may be developing a TMJ syndrome please. Please begin wearing your mouthguard at night. It is important you follow-up with your dentist this week. I encourage you to take tylenol and ibuprofen over the counter for pain and the norco for severe pain only. Return to the emergency department for facial swelling, fevers or inability to fully open your mouth. I am prescribing a short course of narcotic pain medication for you. These are potentially dangerous and addictive medications that should be used carefully. These medications may constipate you. Take an avia-kii-lwsbxeu stool softener (docusate) twice daily with plenty of water while taking these medications. If you go 24 hours without a bowel movement, take upvo-okl-fsgxorp miralax, per package instructions. Do not drink or drive while taking these medications. If you received narcotic or sedating medications while in the emergency department, do not drive for 24 hours. Store this medication in a safe, secure place and out of reach of children. It is a violation of federal law to give or sell this medication to another person or to use in a manner other than prescribed. The ED will not refill narcotic prescriptions, including prescriptions lost or stolen. To dispose of unwanted medications: 1. [facility] at [address] in [place] has a medication drop box. They accept prescription medications (in pill form) Tuesday through Tuesday 9:00 a.m. to 5:00 p.m. 2. The [facility] accepts prescription medications (in pill form only) for disposal year round. Call for more information. 3. Contact the [facility] for the next [facility] sponsored prescription drug collection event. , [phone], or [phone]; Note that many narcotic pain relievers also contain Tylenol/acetaminophen. Please ensure that your total dose of acetaminophen from all sources does not exceed 3 g (3000 mg) per day. Your prescription has been electronically sent to the [facility] in [place].
== END 2021-01-25 12:00 | disposition home or self-care (01) ==
LOC: ED 11:21
DX: K13.79 Other lesions of oral mucosa (principal); R68.84 Jaw pain
CPT/HCPCS: 99282; 99283

== ENCOUNTER 2022-08-21 17:30 | Outpatient (CLI) | payer OTHER ==
--- NOTE | 2022-08-24 08:55 | MRI Report ---
PROCEDURE: KNEE WO - LT INDICATIONS: PAIN IN LEFT KNEE TECHNIQUE: Noncontrast sagittal PD fast spin echo and T2 fast spin echo with fat saturation, sagittal 3-D gradie nt sequence with fat saturation; coronal T1 spin echo and PD fast spin echo with fat saturation, and axial PD fast spin echo with fat saturation through the knee. COMPARISON: Plain films dated 09/22/2018. FINDINGS: Image quality: Degraded by technical factors and body habitus Menisci: There is linear high T2 signal intensity obliquely traversing the inner, middle, peripheral thirds of the posterior horn medial meniscus. Truncation of the free edge of the medial meniscal body is present. Truncation of the free G of the lateral meniscal body. Cruciate ligaments: The anterior and posterior cruciate ligaments appear intact. Medial structures: The medial collateral ligament appears intact. Visualized portions of the pes ans erinus tendons appear normal. No abnormal bursal fluid. Lateral structures: The lateral collateral ligament, long and short heads of the biceps femoris tend on appear intact. The popliteus tendon appears normal. Iliotibial band appears normal. Anterior structures: The quadriceps and patellar tendons appear intact. Patellar alignment is aleah l. No femoral trochlear dysplasia or ventral trochlear prominence. No edema in the infrapatellar fa t pad. Bones and cartilage: No bone marrow contusions or fractures. Mild subchondral degenerative marrow ed kristi within the mid weightbearing aspect of the medial tibial plateau. Intraosseous ganglion within th e central tibial plateau. Mild tricompartmental periarticular osteophyte formation. Severe articular cartilage loss diffusely overlies the weightbearing aspects of the medial femoral condyle and medial tibial plateau. Joint space: There is a moderate knee joint effusion. No Fischer's cyst. Normal appearing synovial pl icae are incidentally noted. IMPRESSION: 1. Tricompartmental osteoarthritis with associated articular cartilage loss. 2. Medial and lateral meniscal tearing. 3. Knee joint effusion. Reviewed by: Alexander Salter MD on 08/24/2022 8:53 AM PDT Approved by: Alexander Salter MD on 08/24/2022 8:53 AM PDT Station ID: [id number]
== END 2022-08-21 17:31 | disposition home or self-care (01) ==
LOC: DI 17:30
PROVIDERS: ATTEND Family Medicine
DX: M17.11 Unilateral primary osteoarthritis, right knee (principal); S83.242A Other tear of medial meniscus, current injury, left knee, initial encounter; M25.462 Effusion, left knee